=== PATIENT | female | born 1990 ===

== ENCOUNTER 2016-10-26 00:57 | Outpatient (CLI) | payer BC ==
[~2016-10-26] VITALS: Ht 175.3 cm; Wt 84.0 kg
[~2016-10-26 00:57] MED LIST: FERR325T36 PO; PNV91TAB3 PO
[2016-10-26 01:06] VITALS: BP 124/75
[2016-10-26 02:26] VITALS: BP 145/78
--- NOTE | 2016-10-26 04:00 | NUR ---
Reviewed dismissal instructions with pt and s/o. reviewed labor precautions and when to return. stressed to pt that she can call at anytime and talk to a nurse if she is not sure if she should come in. Pt is scheduled for induction tomorrow. Pt verbalized understanding,
--- NOTE | 2016-10-26 04:05 | NUR ---
Pt dismissed to home ambulatory accomp by s/o
== END 2016-10-26 04:05 | disposition home or self-care (01) ==
LOC: EUOP 00:57 → OB 00:57 → EUOP 04:05
PROVIDERS: ATTEND Family Medicine
DX: O47.1 False labor at or after 37 completed weeks of gestation (principal); Z3A.40 40 weeks gestation of pregnancy
CPT/HCPCS: 99203

== ENCOUNTER 2016-10-27 05:52 | Inpatient (IN) | payer BC ==
[2016-10-27] VITALS (32 sets, daily range): BP systolic 106–142; BP diastolic 54–78
[~2016-10-27] VITALS: Ht 175.3 cm; Wt 84.0 kg
[2016-10-27] MEDS ORDERED: SODIUM CHLORIDE FLUSH 3 ML SYR IV PRN (05:55)
[2016-10-27] MEDS ORDERED: CALCIUM CARBONATE CHEWABLE 300 MG (TUMS) TABLET PO PRN (05:55)
[2016-10-27] MEDS ORDERED: SODIUM CHLORIDE FLUSH 10 ML SYR IV PRN (05:55)
[2016-10-27] MEDS ORDERED: AMPICILLIN INJ 2,000 MG in SODIUM CHLORIDE 100 ML IV SCH (05:55)
--- OUTSIDE RECORDS SUMMARY | 2016-10-27 05:56 | XMS REPORT | Continuity of Care Document ---
Author Author 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 Name Role Phone Cyrus Kofi Mcclure PCP [phone] Insurance Providers Payer Name Policy Number Subscriber Name Relationship [facility] [id number] [employer] 18 Self / Same As Patient Problems Active Problems Medical Problem Onset Date Status 37 weeks gestation of Unknown Acute Breech presentation Unknown Acute Medications Current Home Medications Medication Dose Units Route Directions Days/Qty Instructions Start Date Ferrous Sulfate 325 Mg 325 Mg ORAL Daily 10/04/16 Pnv95/Ferrous Fumarate/Fa 1 Each 1 Each ORAL Daily 10/04/16 Social History Query Response Start Date Stop Date Smoking Status Never smoker Hospital Discharge Instructions No hospital discharge instructions. Plan of Care Discharge Date 10/04/16 8:15am Prescriptions See Medication Section Functional Status No functional status results. Allergies, Adverse Reactions, Alerts No known allergies. Immunizations No immunization records. Vital Signs Acute Vital Signs Vital Response Date/Time Temperature (Fahrenheit) 97.6 10/04/2016 8:13am Pulse 74 bpm 10/04/2016 8:13am Respirations 18 10/04/2016 8:13am Height 5 ft 9 in Weight 145 lb Body Mass Index 21.0 kg/m^2 Results No known relevant diagnostic tests, laboratory data and/or discharge summary. Procedures No known history of procedures. Encounters Encounter Location Arrival/Admit Date Discharge/Depart Date Attending Provider Registered Clinic [facility] 10/04/16 7:30am DENNIS BELLO MD Recent Diagnosis 37 weeks gestation of Breech presentation
[2016-10-27] MEDS ORDERED: AMPICILLIN 2000 MG VIAL ONE (06:32)
[2016-10-27] MEDS ORDERED: SODIUM CHLORIDE 100 ML ONE (06:33)
[2016-10-27 06:40] LABS: MEAN CORPUSCULAR HEMOGLOBIN 28.4 PG (26.0-34.0); MEAN CORPUSCULAR HGB CONC 35.2 g/dL (31.0-37.0); MEAN PLATELET VOLUME 10.1 FL (6.0-9.5); WHITE BLOOD COUNT 12.49 10^3uL (4.0-11.0)
--- NOTE | 2016-10-27 08:12 | History and Physical (E) ---
History & Physical CC: labor induction for prolonged HPI: 26 y/o at 40 5/7 weeks LUCIANA presents for induction of labor for prolonged . She has been having contractions since the evening of 10/25 and was seen at labor and delivery at 1 cm dilation with no progression over 2 hours and was dismissed home. She continued to contract but contractions were no more intense or frequent. She now reports contractions Q3- 5 min. On presentation to L&D FHT's showed a single decel to the 120's, lasting 4 minutes, associated with marked variability. Because of this, nursing staff contacted me and previous order for cytotec was held. Ampicillin was started at 6:30a for GBS positivity. OB Hx: None course: Dating based on LMP confirmed by 10 6/7 week us. Anemia treated with iron supplementation. Rubella equivocal. GBS + PMHx: None PSHx: None Meds: PNV, iron Allergies: NKDA. No latex sensitivity. PE: VS: BP 113/74 P 74 Chest: CTAB CV: RRR. No murmurs Abd: Gravid. Cx: 3/95/-2 Vtx. Amniotomy yields thin mec, small volume FHT's 160's with minimal variability. Variability increased to marked with amniotomy, then reverted to minimal after about 8 minutes. [place]: Ctx's Q 3-5 min Ext: no edema Lab: Laboratory Results Past 24 Hrs 10/27/16 06:20: Hematocrit 35.80, Hemoglobin 12.6, Mean Corpuscular Hemoglobin 28.4, Mean Corpuscular Hemoglobin Concent 35.2, Mean Corpuscular Volume 81, Mean Platelet Volume 10.1, Platelet Count 243, Red Blood Count 4.43, Red Cell Distribution Width 13.6, White Blood Count 12.49 A/P: 1. Prolonged . No medications administered due to one prior decel and now tachycardia (category 2 tracing). IV fluid bolus is underway and monitoring response to amniotomy prior to augmenting labor. Pt tolerating contractions, not sure if she will be wanting epidural or not. 2. GBS positivity: Ampicillin per protocol. 3. Rubella equivocal: MMR after delivery, prior to discharge. Allergies/Home Medications Allergies: Coded Allergies: No Known Drug Allergies (Unverified , 10/04/16) Reported Home Medications Scheduled Ferrous Sulfate (Iron) 325 MG PO DAILY (Reported) Pnv95/Ferrous Fumarate/FA ( [place]) 1 EACH PO DAILY (Reported) Copies to: End of Report . GAUTAM GARCIA MD Oct 27, 2016 08:12
[2016-10-27] MEDS ORDERED: AMPICILLIN INJ 1,000 MG in SODIUM CHLORIDE 50 ML IV SCH (09:55)
[2016-10-27] MEDS ORDERED: OXYTOCIN INJ 20 UNIT in NS 1000ml 1,000 ML IV SCH ×2 (10:30→18:03)
[2016-10-27] MEDS ORDERED: ROPIVACAINE 1% 10 MG/ML (NAROPIN) 20 ML AMPUL ONE ×2 (10:53→13:34)
[2016-10-27] MEDS: OXYTOCIN INJ 20 UNIT in NS 1000ml 1,000 ML IV PRN ×2 (11:10→19:54)
[2016-10-27 12:31] LABS: BILIRUBIN,URINE Negative (Negative); CLARITY,URINE Clear; COLOR,URINE Yellow; GLUCOSE, URINE (UA) Negative (Negative); LEUKOCYTE ESTERASE ,URINE Negative (Negative); UROBILINOGEN,URINE 0.2 mg/dL (0.2-1.0)
[2016-10-27] MEDS ORDERED: TERBUTALINE 1 MG/ML (BRETHINE) 1 ML AMP SC ONE (13:07)
[2016-10-27] MEDS ORDERED: ceFAZolin 2,000 MG in SODIUM CHLORIDE VIAL (PF) 20 ML IV SCH (13:10)
--- NOTE | 2016-10-27 13:28 | Progress Note (E) ---
Progress Note S: Notified by nursing staff that heart tones are showing late decels repeatedly on 4 u pitocin. Pitocin rate decreased to 2 u. O: Cx: 3/95/-2. Vtx. sm amt mec on chux Fht's 150's, minimal variability, shallow late decels with each contraction [place]: Ctx's about Q 5 min A/P: Pitocin discontinued with resolution of late decels initially. Lack of progress in dilation. Discussed need for c section with Lacy and Wiliam. Questions invited and answered. IV fluid bolus given. Late decels resumed. Terbutaline ordered and given. There is one associate partner today and he is in a case in the OR. Will monitor fetus closely. If status can managed well until that case is over by using intrauterine resusitative measures, then CS will be performed in L&D OR as soon as associate partner and OR crew are available. If fetus is not tolerating the wait, will do CS in main OR. All involved parties are apprised. Preparing for each contingency. Dr Mayfield consulted and available. GAUTAM GARCIA MD Oct 27, 2016 13:28
[2016-10-27] MEDS ORDERED: ceFAZolin 1000 MG (ANCEF) VIAL ONE (13:34)
[2016-10-27] MEDS ORDERED: morphine PF 0.5 MG/ML (DURAMORPH) 10 ML VIAL IV ONE (13:34)
[2016-10-27 13:45] LABS: ANION GAP 13.1 MEQ/L (3-15)
[2016-10-27] MEDS: POT BICARB/SOD BICARB/CIT AC (ALKA-SELTZER GOLD) 1 TABLET.EFF PO SCH ×2 (13:45→14:03)
[2016-10-27] MEDS: METOCLOPRAMIDE 10 MG/2 ML (REGLAN) VIAL IV SCH ×2 (13:46→13:56)
[2016-10-27] MEDS ORDERED: OXYTOCIN 10 UNIT/ML (PITOCIN) 1 ML VIAL ONE (14:49)
--- NOTE | 2016-10-27 17:50 | NUR ---
Lg amt clear emesis. Pt. states she feels better. Med given for N/V
[2016-10-27] MEDS ORDERED: ONDANSETRON 2 MG/ML (Z0FRAN) 2 ML VIAL ONE (17:51)
[2016-10-27] MEDS ORDERED: oxyCODONE/ACETAMINOPHEN 5MG-325 MG (PERCOCET) TABLET PO PRN (18:05)
[2016-10-27] MEDS ORDERED: LANOLIN OINTMENT 28 GM TUBE TOP PRN (18:05)
[2016-10-27] MEDS ORDERED: M-M-R II (MEASLES,MUMPS,RUBELLA) VACCINE SC ONE (18:05)
[2016-10-27] MEDS: IBUPROFEN 600 MG (MOTRIN) TAB PO SCH (18:05)
[2016-10-27] MEDS ORDERED: ONDANSETRON 2 MG/ML (Z0FRAN) 2 ML VIAL IV PRN (18:10)
[2016-10-27] MEDS ORDERED: diphenhydrAMINE 25 MG (BENADRYL) TABLET PO PRN (18:10)
[2016-10-27] MEDS ORDERED: diphenhydrAMINE 50 MG/ML INJ (BENADRYL) IV PRN (18:10)
[2016-10-27] MEDS ORDERED: diphenhydrAMINE 50 MG/ML INJ (BENADRYL) IM PRN (18:10)
[2016-10-27] MEDS ORDERED: NALBUPHINE 10 MG/ML (NUBAIN) 1 ML AMP IV PRN ×2 (18:10)
[2016-10-27] MEDS ORDERED: NALOXONE 0.4 MG/ML (NARCAN) 1 ML VIAL IV PRN ×2 (18:10)
[2016-10-27] MEDS ORDERED: diphenhydrAMINE 50 MG (BENADRYL) CAPSULE PO PRN (18:10)
[2016-10-27] MEDS ORDERED: diphenhydrAMINE 50 MG/ML INJ (BENADRYL) ONE (19:01)
[2016-10-27] MEDS: DOCUSATE SODIUM 100 MG (COLACE) CAP PO SCH (21:00)
[2016-10-28] MEDS: IBUPROFEN 600 MG (MOTRIN) TAB PO SCH ×4 (00:05→18:00)
[2016-10-28 00:17] VITALS: BP 117/82
[2016-10-28] MEDS: OXYTOCIN INJ 20 UNIT in NS 1000ml 1,000 ML IV PRN (02:50)
[2016-10-28 04:02] VITALS: BP 117/67
[2016-10-28 06:14] LABS: MEAN CORPUSCULAR HEMOGLOBIN 29.2 PG (26.0-34.0); MEAN CORPUSCULAR HGB CONC 34.7 g/dL (31.0-37.0); MEAN PLATELET VOLUME 9.8 FL (6.0-9.5); WHITE BLOOD COUNT 12.26 10^3uL (4.0-11.0)
--- NOTE | 2016-10-28 06:56 | NUR ---
Report to Patel Vital RN.
[2016-10-28 07:53] VITALS: BP 102/61
--- NOTE | 2016-10-28 10:48 | OPERATIVE REPORT ---
DATE OF OPERATION: 10/27/2016 PRE-OPERATIVE DIAGNOSIS: Term with intolerance of labor POST-OPERATIVE DIAGNOSIS: Term with intolerance of labor with delivery of viable male . OPERATIVE PROCEDURE: SURGEON: Ferdinand Mayfield MD STONE SETTER: Loly Barajas MD ANESTHESIA: Epidural DESCRIPTION OF PROCEDURE: The patient is a 26-year-old G1, P1 who was 40 weeks and 5 days gestation. Onset of labor was augmented with Pitocin, but then there was evidence of intolerance of labor. Augmentin was discontinued. She dilated up to only 3 to 4 cm where there were significant further variable decelerations with late decelerations and the decision was made to proceed with operative delivery and I was consulted. The patient was taken to the OR and epidural was raised to appropriate levels. A Wallace catheter had been placed. The patient did receive prophylactic Ancef by IV route. The usual abdominal scrubs, preps and drapes were applied. At this point a Pfannenstiel skin incision was created and carried down to the fascia. The fascia was entered bilaterally at midline and fascial flaps were then reflected superiorly and inferiorly. The midline was entered bluntly with hemostats and the bladder blade then was placed for exposure. The uterine serosa was then tented and incised in a transverse manner with Metzenbaum scissors and the bladder blade was replaced. AT this point the scalpel was used to create a low transverse uterine incision. Upon uterotomy, a large amount of thin, pea-green meconium fluid was returned. The infants head was delivered, the shoulders were delivered and was then passed off for evaluation after cord was clamped and cut. At this point the placenta was manually delivered. The uterus was then exteriorized. Pitocin was added to IV drip. Good uterine tone was established. The uterus was exteriorized. The uterine repair was performed with #0 Vicryl in a running locking manner. An overlying imbricating layer was placed for support of the wound with good hemostasis on both layers. At this point the gutters were cleared of all clots and the uterus was then replaced. The anterior peritoneum was closed with 2-0 Vicryl. The skin edges were closed with #0 Vicryl in a running manner and the skin was then closed with surgical baljeet. All layers were hemostatic prior to closure. The patient tolerated the procedure very well. She will be taken to her postoperative room in good condition.
[2016-10-28 12:47] VITALS: BP 120/66
[2016-10-28 20:00] VITALS: BP 116/60
[2016-10-28] MEDS: DOCUSATE SODIUM 100 MG (COLACE) CAP PO SCH (21:00)
[2016-10-29] MEDS: IBUPROFEN 600 MG (MOTRIN) TAB PO SCH ×4 (00:05→18:12)
[2016-10-29 08:33] VITALS: BP 104/60
[2016-10-29 21:21] VITALS: BP 104/58
[2016-10-29] MEDS: DOCUSATE SODIUM 100 MG (COLACE) CAP PO SCH (21:25)
[2016-10-30] MEDS: IBUPROFEN 600 MG (MOTRIN) TAB PO SCH ×3 (00:33→12:30)
[2016-10-30 09:05] VITALS: BP 118/58
--- NOTE | 2016-10-30 10:45 | NUR ---
Reviewed dismissal instructions with patient. questions answered and verbalizes understanding. Deann Gannon RN
--- NOTE | 2016-10-30 14:10 | NUR ---
Pt dismissed to home ambulatory accomp by family and this RN
--- NOTE | 2016-10-31 08:39 | DISCHARGE SUMMARY ---
ADMISSION DATE: 10/27/2016 DISCHARGE DATE: 10/30/2016 DISCHARGE DIAGNOSIS: 1. Term , spontaneous labor. 2. intolerance of labor. 3. Delivery of viable male, small for gestational age with meconium staining. PROCEDURES: Nonscheduled emergent section PRESENT ILLNESS AND POSITIVE PHYSICAL FINDINGS: The patient is a 26-year-old primigravida who was 40 weeks 5 days gestation who presented with spontaneous labor. Her labor progressed up to only 3 to 4 cm of dilatation where there was significant evidence of distress on the monitor with late decelerations and variable decelerations. The decision was made to proceed with operative delivery and I was consulted. At this point, the patient was taken to the OR where a section was performed under epidural anesthesia through a transverse lower uterine incision. At the time of delivery there was moderately thick pea-green meconium and the required resuscitation. Refer to Dr. Barajas's dictation regarding the infant. The surgery was uncomplicated, otherwise. The mother was then taken to her postoperative room in good condition. The had been taken to the nursery where further observation was undertaken and eventually had return to normal healthy state and roomed in with mother. The patient's postoperative course was otherwise unremarkable other than her rapid advancement with diet and activity. She had no problems or complications with her wound and on the morning of the she was stable for dismissal to home. SIGNIFICANT X-RAY AND LABORATORY DATA: The patient's hemoglobin was 12.6 and dropped to 9.9 on her first postop day. Maternal blood type was B positive. DISPOSITION: On dismissal the patient was dismissed to home. She will follow up with me in [address] Barajas for her 6-week check. DISCHARGE MEDICATIONS: 1. vitamins once a day. 2. Ibuprofen 600 mg every 6 hours as needed for pain relief. 3. Percocet 5/325 1 p.o. q 4 hours as needed for pain. #20 was prescribed. She will contact the office Monday morning for her and her 's appointments with Dr. Barajas and me.
== END 2016-10-30 14:10 | disposition home or self-care (01) | DRG 766 ==
LOC: OB 05:52
PROVIDERS: ADMIT Family Medicine; ATTEND Family Medicine
PROC: 10D00Z1 Extraction of Products of Conception, Low, Open Approach (ICD-10-PCS; principal; 2016-10-27)
DX: O76 Abnormality in fetal heart rate and rhythm complicating labor and delivery (principal); O48.0 Post-term pregnancy; O77.0 Labor and delivery complicated by meconium in amniotic fluid; O99.824 Streptococcus B carrier state complicating childbirth; O99.02 Anemia complicating childbirth; D64.9 Anemia, unspecified; Z3A.40 40 weeks gestation of pregnancy; Z37.0 Single live birth; Z23 Encounter for immunization
CPT/HCPCS: 36415; 59510; 80048; 81003; 85014; 85018; 85027; 85610; 85730; 86850; 86900; 86901; 90707; 94762